=== PATIENT | male | born 1995 | race African-American/Black ===

== ENCOUNTER 2016-09-16 07:14 | Emergency (ER) | payer SELFPAY | END 2016-09-16 07:20 | disposition left against medical advice (07) | LOC: ER 07:14 | DX: S41.002A Unspecified open wound of left shoulder, initial encounter (principal); Z53.21 Procedure and treatment not carried out due to patient leaving prior to being seen by health care provider; W34.00XA Accidental discharge from unspecified firearms or gun, initial encounter; Y93.89 Activity, other specified; Y92.89 Other specified places as the place of occurrence of the external cause; Y99.8 Other external cause status ==